=== PATIENT | male | born 1960 ===

== ENCOUNTER 2021-08-15 10:25 | Emergency (ER) | payer MEDICAID ==
[~2021-08-15] VITALS: Ht 190.5 cm; Wt 118.2 kg
[2021-08-15 13:08] LABS: BASOPHILS # (AUTO) 0.1 X10'3 (0-0.2); EOSINOPHILS # (AUTO) 0.1 X10'3 (0-0.9); HEMOGLOBIN 12.4 g/dl (14.0-17.9); MEAN CORPUSCULAR VOLUME 82.3 FL (78-98); NEUTROPHILS # (AUTO) 13.9 X10'3 (1.8-7.7); PLATELET COUNT 646 X10'3 (140-440)
[2021-08-15 13:10] LABS: BASOPHILS % (AUTO) 0.4 % (0-1); EOSINOPHILS % (AUTO) 0.6 % (0-6); HEMATOCRIT 37.9 % (42.0-52.0); LYMPHOCYTES # (AUTO) 1.8 X10'3 (1.1-4.8); LYMPHOCYTES % (AUTO) 10.6 % (21-51); MEAN CORPUSCULAR HGB CONC 32.8 g/dL (33.0-36.5); MEAN PLATELET VOLUME 7.2 FL (7.4-10.4); MONOCYTES # (AUTO) 1.4 X10'3 (0-0.9); MONOCYTES % (AUTO) 8.2 % (2-12); NEUTROPHILS % (AUTO) 80.2 % (42-75); RED CELL DISTRIBUTION WIDTH 16.6 % (11.5-14.5); WHITE BLOOD COUNT 17.4 X10'3 (4.5-11.0)
[2021-08-15 13:32] LABS: ALANINE AMINOTRANSFERASE 21 U/L (12-78); ALBUMIN 1.7 G/DL (3.4-5.0); ALBUMIN/GLOBULIN RATIO 0.4 (1.1-1.5); ALKALINE PHOSPHATASE 102 IU/L (46-116); ANION GAP 9 (8-16); ASPARTATE AMINO TRANSFERASE 23 U/L (10-37); BILIRUBIN,TOTAL 0.3 MG/DL (0.1-1.0); BLOOD UREA NITROGEN 20 MG/DL (7-18); CALCIUM 8.8 MG/DL (8.5-10.1); CHLORIDE 103 MMOL/L (99-107); GLUCOSE 120 MG/DL (70-104); POTASSIUM 4.6 MMOL/L (3.5-5.1); SODIUM 139 MMOL/L (135-145); TOTAL CARBON DIOXIDE 26.7 MMOL/L (24-32); TOTAL PROTEIN 6.4 G/DL (6.4-8.2); eGFR > 90 ML/MIN
[2021-08-15] MEDS ORDERED: iohexol 300mg/ml 100ml inj. ONE (13:45)
[2021-08-15] MEDS ORDERED: normal saline 1000ML IV soln IV ONE (13:50)
[2021-08-15] MEDS ORDERED: piperacillin/tazo 3.375gm/50ml 50 ML IV ONE (13:50)
[2021-08-15] MEDS ORDERED: vancomycin/NS 1 GM ADD-VANTAGE 250 ML IV ONE (13:50)
[2021-08-15 14:52] VITALS: BP 130/80
[2021-08-15] MEDS ORDERED: morphine 4 MG/ML inj SYRINge IV ONE (16:25)
[2021-08-15] MEDS ORDERED: ondansetron 4mg rapidly disintigrating tab PO ONE (16:25)
[2021-08-15] MEDS ORDERED: AMOX-422 PO (16:40)
[2021-08-15] MEDS ORDERED: AZIT-103 PO (16:40)
[2021-08-15] MEDS ORDERED: ONDA4TAB6 PO (16:40)
[2021-08-15] MEDS ORDERED: HYDR-3965 PO (16:40)
== END 2021-08-15 17:48 | disposition home or self-care (01) ==
LOC: ER 10:25
DX: C79.9 Secondary malignant neoplasm of unspecified site (principal); J18.9 Pneumonia, unspecified organism; R10.32 Left lower quadrant pain; M25.452 Effusion, left hip; Z88.5 Allergy status to narcotic agent; Z79.2 Long term (current) use of antibiotics; Z79.899 Other long term (current) drug therapy
CPT/HCPCS: 36415; 71260; 74177; 80053; 83605; 83735; 84145; 85025; 87040; 96365; 96367; 99285; J2543; J3370; J7030; Q9967; 99284